=== PATIENT | male | born 1950 | race African-American/Black ===

== ENCOUNTER → 2018-04-12 | Outpatient (CLI) | payer MEDICARE ==
[~2018-04-12] MED LIST: ACET-2178 PO; ALBU2.5V13; BENA10TA3; BUDE6.9H INH; CAPS42.57 TP; CHOL100044 PO; DICL50TA7; ERGO500013 PO; FINA5TAB11 PO; IPRA0.2S51 IH; METH500T PO; MULT-348 PO; OMEP20CA10 PO; POTA10TA15 PO; SIMV20TA2 PO; TADA20TA; TAMS0.4C31 PO; TERA2CAP4; TIOT18CA3 IH; TRIA1CAP6 PO; ZINC220C2 PO; [UNRECOGNIZED DRUG - CODE]
== END | disposition home or self-care (01) ==
LOC: US 12:25
PROVIDERS: ATTEND Internal Medicine Critical Care Medicine
DX: N13.30 Unspecified hydronephrosis (principal); N20.0 Calculus of kidney; I13.0 Hypertensive heart and chronic kidney disease with heart failure and stage 1 through stage 4 chronic kidney disease, or unspecified chronic kidney disease; N18.9 Chronic kidney disease, unspecified; I50.22 Chronic systolic (congestive) heart failure; E78.5 Hyperlipidemia, unspecified; K21.9 Gastro-esophageal reflux disease without esophagitis; J44.9 Chronic obstructive pulmonary disease, unspecified
CPT/HCPCS: 76770